=== PATIENT | male | born 1965 | race Caucasian/White ===

== ENCOUNTER 2016-08-28 16:36 | Emergency (ER) | payer OTHER ==
[~2016-08-28 16:36] MED LIST: ASPIRIN BUFFER325 M1 PO; COREG3.125 MG PO; CRESTOR40 MG PO; EFFIENT10 MG PO; NITROSTAT0.4 MG SL; ZESTRIL10 M1 PO
== END 2016-08-28 18:18 | disposition home or self-care (01) ==
LOC: CED 16:36
DX: L02.212 Cutaneous abscess of back [any part, except buttock and flank] (principal); I25.2 Old myocardial infarction; F17.200 Nicotine dependence, unspecified, uncomplicated; Z79.82 Long term (current) use of aspirin; Z79.899 Other long term (current) drug therapy
CPT/HCPCS: 10060; 99283; J1170

== ENCOUNTER 2016-08-30 11:38 | Emergency (ER) | payer OTHER | END 2016-08-30 12:35 | disposition home or self-care (01) | LOC: CFTX 11:38 | DX: L02.212 Cutaneous abscess of back [any part, except buttock and flank] (principal); L03.312 Cellulitis of back [any part except buttock and flank]; F17.210 Nicotine dependence, cigarettes, uncomplicated; I25.2 Old myocardial infarction; Z79.82 Long term (current) use of aspirin; Z79.899 Other long term (current) drug therapy | CPT/HCPCS: 99282 ==